=== PATIENT | female | born 1960 | race Caucasian/White ===

== ENCOUNTER → 2018-06-21 19:52 | Outpatient (CLI) | payer OTHER | END | disposition home or self-care (01) | LOC: D.MAMMO 15:15 | DX: Z12.31 Encounter for screening mammogram for malignant neoplasm of breast (principal) ==

== ENCOUNTER → 2018-07-20 16:40 | Outpatient (CLI) | payer OTHER | END | disposition home or self-care (01) | LOC: D.MAMMO 14:00 | DX: R92.8 Other abnormal and inconclusive findings on diagnostic imaging of breast (principal) ==

== ENCOUNTER 2019-07-04 09:30 | Outpatient (CLI) | payer OTHER | END 2019-07-04 10:00 | disposition home or self-care (01) | LOC: D.MAMMO 09:30 | PROVIDERS: ATTEND Nurse Practitioner Family | DX: Z12.31 Encounter for screening mammogram for malignant neoplasm of breast (principal) ==

== ENCOUNTER 2021-01-01 15:30 | Outpatient (CLI) | payer OTHER | END 2021-01-01 23:59 | disposition home or self-care (01) | LOC: D.MAMMO 15:30 | PROVIDERS: ATTEND Nurse Practitioner Family | DX: Z12.31 Encounter for screening mammogram for malignant neoplasm of breast (principal) ==

== ENCOUNTER 2021-01-15 19:21 | Outpatient (CLI) | payer OTHER | END 2021-01-15 23:59 | disposition home or self-care (01) | LOC: D.MAMMO 19:21 | PROVIDERS: ATTEND Nurse Practitioner Family | DX: R92.8 Other abnormal and inconclusive findings on diagnostic imaging of breast (principal) ==